=== PATIENT | male | born 1960 | race Caucasian/White ===

== ENCOUNTER → 2022-05-28 | Outpatient (CLI) | payer OTHER, SELFPAY ==
[2022-05-28 09:17] LABS: Absolute Lymphocyte Count 0.88 X10^3/uL (0.83-4.51); Absolute Neutrophil Count 4.1 X10^3/uL (2.0-7.7); Basophil# 0.05 X10^3/uL; Basophil% 0.9 % (0-1); Eosinophil# 0.24 X10^3/uL; Eosinophils% 4.2 % (0-5); Hematocrit 43.4 % (40-54); Hemoglobin 15.8 g/dL (13.0-16.5); Lymphocyte # 0.88 X10^3/ul (0.83-4.51); Lymphocyte % 15.4 % (19-41); Mean Corp Hgb Conc 36.4 g/dL (32-36); Mean Corpuscular Hgb 30.9 pg (27.0-32.0); Mean Corpuscular Volume 84.8 fL (80-94); Mean Platelet Vol. 11.2 fl (6.2-12.0); Monocyte# 0.45 X10^3/uL; Monocyte% 7.9 % (0-10); NRBC Flagged by Analyzer 0 % (0-5); Neutrophil # 4.07 X10^3/uL (2.7-7.7); Neutrophil % 71.1 % (47-70); Platelet Count 151 K/mm3 (150-450); RBC Distribution Width CV 13.1 % (11.6-14.6); RBC Distribution Width SD 40.7 fl (35.1-43.9); Red Blood Count 5.12 M/mm3 (4.6-6.2); White Blood Count 5.7 K/mm3 (4.4-11.0)
[2022-05-30 17:07] LABS: Alternaria tenuis <0.10 kU/L (Class 0); Ash, White <0.10 kU/L (Class 0); Aspergillus fumigatus <0.10 kU/L (Class 0); Bermuda Grass <0.10 kU/L (Class 0); Birch <0.10 kU/L (Class 0); Black Walnut <0.10 kU/L (Class 0); Cat Hair / Dander,Stand <0.10 kU/L (Class 0); Cedar, Mountain <0.10 kU/L (Class 0); Cladosporium herbarum <0.10 kU/L (Class 0); Cockroach, American <0.10 kU/L (Class 0); Cottonwood <0.10 kU/L (Class 0); D farinae Mite <0.10 kU/L (Class 0); D pteronyssinus <0.10 kU/L (Class 0); Dog Epithelia <0.10 kU/L (Class 0); Elm, American White <0.10 kU/L (Class 0); Immunoglobulin E 6 IU/mL (6-495); Maple/Box Elder <0.10 kU/L (Class 0); Mulberry, White <0.10 kU/L (Class 0); Oak, White <0.10 kU/L (Class 0); Pecan <0.10 kU/L (Class 0); Penicillium Notatum <0.10 kU/L (Class 0); Pigweed, Rough <0.10 kU/L (Class 0); Ragweed, Short/Common <0.10 kU/L (Class 0); Russian Thistle <0.10 kU/L (Class 0); Sheep Sorrel <0.10 kU/L (Class 0); Sycamore, American <0.10 kU/L (Class 0); Timothy Grass <0.10 kU/L (Class 0)
[2022-05-31 09:27] LABS: Mouse Urine <0.10 kU/L (Class 0)
[2022-06-01 18:08] LABS: Aspirgillus flavus Negative (Neg:<1:1); Aspirgillus fumigatus Negative (Neg:<1:1); Aspirgillus niger Negative (Neg:<1:1)
[2022-06-02 11:24] LABS: Immunoglobulin E 7 IU/mL (6-495)
== END | disposition home or self-care (01) ==
LOC: PAVLAB 09:00
PROVIDERS: Referring Provider Internal Medicine Critical Care Medicine; Visit Provider Internal Medicine Critical Care Medicine
DX: J45.909 Unspecified asthma, uncomplicated (principal)
CPT/HCPCS: 36415; 82785; 85025; 86003; 86606

== ENCOUNTER → 2022-09-24 | Outpatient (CLI) | payer OTHER, SELFPAY ==
--- NOTE | 2022-09-24 13:13 | ECHOD_ITS ---
Reason For Study: Dyspnea/SOB Procedure This was a 2D Doppler, Color Flow transthoracic echocardiogram. Exam performed in department. Left Ventricle Normal LV size. Mild concentric left ventricular hypertrophy. Left ventricular systolic function is normal. Stage 1 diastolic dysfunction. No regional wall motion abnormalities noted. Right Ventricle Normal RV size. Normal systolic function. Atria Normal left atrium. Normal right atrium. Mitral Valve Normal mitral valve. Tricuspid Valve Normal tricuspid valve. Aortic Valve Trisinus/trileaflet aortic valve. Mild focal aortic valve calcification. Pulmonic Valve Normal pulmonic valve. Great Vessels Normal aortic root. The pulmonary artery is normal size. Normal inferior vena cava. Pericardium/Pleural No pericardial effusion. MMode/2D Measurements & Calculations LVIDd: 5.1 cm IVSd: 1.2 cm Ao root diam: 3.4 cm LVIDs: 3.1 cm LVPWd: 1.2 cm RVDd: 4.5 cm FS: 40.4 % LAV(MOD-bp): 42.8 ml LVAd ap4: 26.0 cm2 SV(MOD-sp4): 46.2 ml LAV(MOD-bp) Indexed: 19.3 ml/m2 LVLd ap4: 7.8 cm LAV(MOD-sp2): 42.8 ml EDV(MOD-sp4): 70.2 ml LAV(MOD-sp4): 38.2 ml EDV(sp4-el): 73.4 ml LVAs ap4: 13.6 cm2 LVLs ap4: 6.5 cm ESV(MOD-sp4): 24.0 ml ESV(sp4-el): 24.1 ml EF(MOD-sp4): 65.8 % EF(sp4-el): 67.1 % SV(sp4-el): 49.3 ml LA A4 area: 14.8 cm2 LA dimension(2D): 3.6 cm RA A4 area: 12.6 cm2 TAPSE: 1.9 cm Time Measurements MV dec time: 0.31 sec Doppler Measurements & Calculations MV E max parish: 64.4 cm/sec Lat Peak E' Parish: 13.6 cm/sec Med Peak E' Parish: 6.5 cm/sec MV A max parish: 87.0 cm/sec E/E' lat: 4.8 E/E' med: 10.0 MV E/A: 0.74 Ao V2 max: 169.5 cm/sec LV V1 max: 122.6 cm/sec MV dec slope: 205.7 cm/sec2 Ao max P.5 mmHg LV V1 max P.0 mmHg Ao V2 mean: 123.3 cm/sec LV V1 mean P.9 mmHg Ao mean P.6 mmHg LV V1 mean: 78.6 cm/sec Ao V2 VTI: 30.5 cm LV V1 VTI: 23.3 cm AV (velocity ratio): 0.76 PA V2 max: 80.4 cm/sec ECHO/Echo Complete Interpretation Summary Normal LV size. Left ventricular systolic function is normal. Stage 1 diastolic dysfunction. Structurally normal valves. Ordering Physician: Janay Chaidez Referring Physician: Janay Chaidez Performed By: Payal Jesus, PIETER, RVT
== END | disposition home or self-care (01) ==
LOC: PSN 13:14 → CVS 13:14
PROVIDERS: Referring Provider Nurse Practitioner Acute Care; Visit Provider Nurse Practitioner Acute Care
DX: R06.02 Shortness of breath (principal)
CPT/HCPCS: 93306

== ENCOUNTER → 2022-10-18 | Outpatient (CLI) | payer OTHER, SELFPAY ==
[2022-10-18 13:46] VITALS: PULSE 100; PULSE 101; PULSE 77; PULSE 78; PULSE 95; PULSE 96; PULSE 98; O2SAT 90; O2SAT 91; O2SAT 92; O2SAT 94; O2SAT 95; O2SAT 97
--- NOTE | 2022-10-18 13:50 | CPS ---
ENTIRE WALK TEST DONE ON RA. AUDIBLE EXP WHEEZING NOTED AROUND 2ND MINUTE OF EXERCISE AND CONTINUED UNTIL PATIENT WAS AT REST FOR SEVERAL MINUTES AFTER TEST ENDED. PATIENT STATES PREVIOUSLY HAD AN INHALER BUT HAS NOT HAD OR USED ONE RECENTLY. HE DID NOT REQUIRE ANY REST BREAKS AND WALKED 1433FT.
--- NOTE | 2022-10-19 05:56 | WT_ITS ---
PSN 6 Minute Walk Test 6 Minute Walk Test 6 Minute Walk Test: 6 Minute Walk Test PSN:6-Minute Walk Test Start: 10/18/22 13:46 Freq: Status: Active Protocol: RESP.[id number] Document 10/18/22 13:46 [facility] (Rec: 10/18/22 13:52 [facility] [id number]) 6 Minute Walk Test Date Performed 10/18/22 Time Performed 12:30 Height 6 ft 1 in Weight: 96.162 kg Weight in Pounds 212.[address]: Janay Chaidez [employer] Assistive device used: None Pre-test Oxygen Delivery Method Room Air Pulse Ox 97 Pulse Rate (60-100) 78 Dyspnea Poornima Scale (0-10) 0 1st minute Oxygen Delivery Method Room Air Pulse Ox 95 Pulse Rate (60-100) 95 Dyspnea Poornima Scale (0-10) 0 Number of Rests Taken 0 2nd minute Oxygen Delivery Method Room Air Pulse Ox 91 Pulse Rate (60-100) 96 Dyspnea Poornima Scale (0-10) 0 Number of Rests Taken 0 3rd minute Oxygen Delivery Method Room Air Pulse Ox 91 Pulse Rate (60-100) 100 Dyspnea Poornima Scale (0-10) 1 Number of Rests Taken 0 4th minute Oxygen Delivery Method Room Air Pulse Ox 90 Pulse Rate (60-100) 101 H Dyspnea Poornima Scale (0-10) 1 Number of Rests Taken 0 5th minute Oxygen Delivery Method Room Air Pulse Ox 92 Pulse Rate (60-100) 100 Dyspnea Poornima Scale (0-10) 1 Number of Rests Taken 0 Reported Symptoms Increased Work of Breathing 6th minute Oxygen Delivery Method Room Air Pulse Ox 94 Pulse Rate (60-100) 98 Dyspnea Poornima Scale (0-10) 1 Number of Rests Taken 0 Post-test Oxygen Delivery Method Room Air Pulse Ox 97 Pulse Rate (60-100) 77 Dyspnea Poornima Scale (0-10) 0 Full Laps Walked 24 Partial Lap, Number of Tiles Walked 17 Total Distance Walked (ft) 1433 10/18/22 13:50 [facility] Services by Corry Ye ENTIRE WALK TEST DONE ON RA. AUDIBLE EXP WHEEZING NOTED AROUND 2ND MINUTE OF EXERCISE AND CONTINUED UNTIL PATIENT WAS AT REST FOR SEVERAL MINUTES AFTER TEST ENDED. PATIENT STATES PREVIOUSLY HAD AN INHALER BUT HAS NOT HAD OR USED ONE RECENTLY. HE DID NOT REQUIRE ANY REST BREAKS AND WALKED 1433FT. Initialized on 10/18/22 13:50 - END OF NOTE Interpretation Interpretation: The patient was able to ambulate 1433 feet over the course of 6 minutes on room air with no assistive devices or breaks. The patient did experience significant desaturation from a baseline of 97% to as low as 90% with ambulation. Patient did have an element of reflexive tachycardia as high as 101 bpm. These findings are consistent with a respiratory limitation exercise tolerance. Recommendations Recommendations: No supplemental oxygen is indicated at this time. However, patient will need to be followed closely given level of desaturation.
== END | disposition home or self-care (01) ==
LOC: PSN 12:23
PROVIDERS: Referring Provider Nurse Practitioner Acute Care; Visit Provider Nurse Practitioner Acute Care
DX: R06.02 Shortness of breath (principal)
CPT/HCPCS: 94618

== ENCOUNTER → 2022-12-20 | Outpatient (CLI) | payer OTHER, SELFPAY | END | disposition home or self-care (01) | LOC: SL 11:57 | PROVIDERS: Visit Provider Nurse Practitioner Acute Care | DX: G47.10 Hypersomnia, unspecified (principal) | CPT/HCPCS: 95806 ==

== ENCOUNTER → 2023-11-05 | Outpatient (CLI) | payer OTHER, SELFPAY ==
--- NOTE | 2023-11-05 19:09 | CT_ITS ---
STUDY: CT CHEST WITH CONTRAST REASON FOR EXAM: Male, 63 years old. Abnormal Chest CT with lymphadenopathy RADIATION DOSAGE (If Supplied By Facility): CTDIvol = ( 13.61 ) mGy, DLP = ( 545.60 ) mGycm TECHNIQUE: Transaxial imaging was performed following intravenous administration of IV 100mL Isovue-370. Multiplanar coronal and sagittal images were reformatted. Individualized dose optimization techniques were used for this CT. COMPARISON: Comparison is made with prior outside examination dated September 26, 2023. FINDINGS: CHEST The lungs are normal. There is no demonstrated pleural abnormality. No significant coronary artery calcification is seen. There is evidence of a enlarged mediastinal as well as bilateral hilar lymphadenopathy more prominent on the right side. There is narrowing of the right upper lobe bronchus as well as the intermediate stem bronchus with the evidence of the postobstructive pneumonitis and volume loss in the right upper lobe. This also evidence of a multiple bilateral pulmonary nodules with the infiltrate seen in the superior segment of the right lower lobe. . Normal unenhanced pulmonary arteries. Normal aorta arch and descending thoracic aorta. There are multi-level degenerative changes of the thoracic spine. Findings suggestive of a 3.5 cm cyst in the mid anterior portion of the right kidney. CT/Chest WITH Contrast IMPRESSION: Mediastinal and bilateral hilar lymphadenopathy more prominent on the right side with possible mass in the right hilum with the postobstructive pneumonitis and volume loss in the right upper lobe. A neoplastic process should be ruled out. Multiple bilateral noncalcified pulmonary nodules. Electronically Signed: David Moctezuma MD at 9:19 EDT ,
[2023-11-05 19:35] LABS: CREATININE FINGERSTICK < 1.0 mg/dL (0.70-1.30); EGFR FINGERSTICK > 60.0000 mL/min (>60)
== END | disposition home or self-care (01) ==
LOC: CT 19:09
PROVIDERS: Referring Provider Internal Medicine Critical Care Medicine; Visit Provider Internal Medicine Critical Care Medicine
DX: R93.89 Abnormal findings on diagnostic imaging of other specified body structures (principal); J45.40 Moderate persistent asthma, uncomplicated
CPT/HCPCS: 71260; Q9967

== ENCOUNTER → 2023-11-06 | Outpatient (CLI) | payer OTHER, SELFPAY ==
[2023-11-06 11:57] LABS: Platelet Count 124 K/mm3 (150-450)
[2023-11-06 12:19] LABS: Partial Thromboplast Time 30.1 Seconds (24.1-36.2)
== END | disposition home or self-care (01) ==
LOC: PAVLAB 11:39
PROVIDERS: Referring Provider Internal Medicine Critical Care Medicine; Visit Provider Internal Medicine Critical Care Medicine
DX: R93.89 Abnormal findings on diagnostic imaging of other specified body structures (principal)
CPT/HCPCS: 36415; 85049; 85610; 85730

== ENCOUNTER 2023-11-15 10:38 | Day surgery (SDC) | payer OTHER, SELFPAY ==
--- NOTE | 2023-11-12 12:10 | HP.PCM_ITS ---
[facility] - General General Date of Service: 11/15/23 HPI Narrative The patient is a 63-year-old male who was last seen in the pulmonary medicine clinic on November 06, 2023. If you recall, the patient initially presented to our office in May 2022 for the evaluation of asthma. The patient had pulmonary function studies completed through [facility] in [place], dated March 2022, which revealed a severe obstructive ventilatory impairment with significant bronchodilator response and concurrent mild restrictive impairment with mild reduction in diffusion capacity. He is a lifelong non-smoker, without any significant secondhand smoke exposure. He is currently employed working as a crop marin. He does not currently keep any animals as pets in his home environment. He denied any overt GERD or heartburn. The patient reported that in September 2023 he developed a significant cough with blood-streaked sputum. This prompted his PCP to obtain chest imaging. A contrasted chest CT was ultimately performed on September 25, which demonstrated consolidation and atelectasis in the right middle lobe along with a right hilar masslike consolidation which ultimately resulted in partial obstruction of the right middle and lower lobe bronchus. The patient reported that he was subsequently treated with 2 different antimicrobials and corticosteroids. He reported resolution of his blood-streaked sputum. Repeat CT imaging of the chest completed in early November continues to demonst rate enlarged mediastinal and hilar adenopathy, right greater than left with narrowing of the right upper lobe bronchus and postobstructive pneumonitis. Several bilateral pulmonary nodules were noted. Given these findings, I had a detailed discussion with the patient today regarding workup, including proceeding with bronchoscopy/EBUS to facilitate mediastinal sampling. The patient reported an interest in proceeding with workup. 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 Lower leg injury Diabetes mellitus Asthma Depressive disorder Medial meniscus tear Albuminuria Anxiety disorder SOB (shortness of breath) Home Medications ?Medication ?Instructions ?Recorded ?Last Taken ?Type glipizide 10 mg tablet, extended 10 mg PO DAILY 05/25/22 Unknown History release 24 hr metformin 500 mg tablet,extended 1,000 mg PO BID 05/25/22 Unknown History release 24 hr spacer #1 ea 11/01/22 Unknown Rx irbesartan 150 mg tablet 150 mg PO DAILY 02/07/23 Unknown History montelukast 10 mg tablet 10 mg PO QPM #90 tabs 07/03/23 Unknown Rx (Singulair) clonazepam 0.5 mg tablet 0.5 mg PO BID PRN anxiety 30 days 08/21/23 Unknown Rx #60 tabs sertraline 100 mg tablet 200 mg (2 x 100 mg) PO DAILY 90 08/21/23 Unknown Rx days #180 tabs budesonide 160 mcg-glycopyr 9 2 inh inhalation BID #3 ea 09/13/23 Unknown Rx mcg-formot 4.8 mcg/actuation HFA inhaler (Breztri Aerosphere) albuterol sulfate 90 mcg/actuation 2 puff inhalation Q4H PRN 10/17/23 Unknown Rx aerosol inhaler shortness of breath or wheezing #8.5 grams Allergy/AdvReac Type Severity Reaction Status Date / Time No Known Allergies Allergy Verified 11/06/23 11:10 Family History Mother Heart disease Brother Hypertension Surgical History H/O surgical amputation of finger Social History Smoking Status: Never smoker alcohol intake: never substance use type: does not use Physical Exam Const alert and no apparent distress General Appearance: cooperative HEENT normocephalic and head/scalp atraumatic Eyes PERRL and EOMs intact bilaterally Neck supple General: trachea midline Resp normal respiratory effort and normal air movement Cardio regular rate and regular rhythm GI normal to inspection, nondistended, normoactive bowel sounds Extremity General Extremity: Negative for clubbing, cyanosis or edema Skin General Skin Exam: no breakdown Neuro CN's II-XII intact bilaterally and no focal motor deficits Psych cooperative and affect normal Assessment & Plan Assessment/Plan (1) Abnormal chest CT: PLAN: Given that the patient continues to demonstrate significant mediastinal and hilar adenopathy with extrinsic compression of the airway, we will plan to proceed with bronchoscopy/EBUS on November 14. The risks and benefits of the proposed procedure were discussed with the patient at length. He is in agreement to proceed.
[2023-11-15] VITALS (8 sets, daily range): BP systolic 135–162; BP diastolic 71–90; PULSE 69–83; RESP 16–20; TEMP 36.1–36.7; O2SAT 93–100; BMI 26.8
--- NOTE | 2023-11-15 | ASPIG_PTH ---
PATIENT: EUGENIO WILLIAM LOC: EN U#:[id number] AGE/SX: 63/M ROOM: RE11/15/[address]: Dr. Ishaan Hurst DO : 1960 BED: DIS: 11/15/2023 SPEC #: [id number] RECD: 11/15/23 13:01 STATUS: KAY LOPEZ #: [id number] JOHN: 11/15/23 00:[address]: Ishaan Hurst DEPT: CYTOLOGY RECD BY: Arnold Nuñze ENTERED: 11/15/23 13:05 SP TYPE: ASP OUT OTHR DR: Dr. Eugenio Ac DO Tissues: A - Lung, NOS B - Lung, NOS C - Lung, NOS D - Lung, NOS E - Lung, NOS F - Lung, NOS Procedures: FNA Specimen Adequacy Special Stain Group II Surgery Specimen Level IV Cytology Other HEADER OPERATION: Endobronchial ultrasound and bronchoscopy with brushings PRE-OP DIAGNOSIS: Abnormal chest CT TISSUE SUBMITTED: Right upper lobe brushings, Right upper lobe brush tip DIAGNOSIS CYTOLOGY A. EBUS, TBNA, site 10R #1 (smears): Respiratory epithelial cells noted. Negative for malignant cells. See comment. B. EBUS, TBNA site 10R #2 (smears): Respiratory epithelial cells noted. Negative for malignant cells. See comment. C. EBUS, TBNA site 10 R #3 (smears): Predominant mucoid material. Negative for malignant cells. See comment. D. EBUS, TBNA, site 10 R fluid (cellblock): Negative for malignant cells. See cytology study. E. Right upper lobe brush tip fluid (cytospin and cellblock): Negative for malignant cells. See cytology study. F. Right upper lobe brushings (smears): Negative for malignant cells. ARMANI/ 11/18/2023 COMMENT The specimen is evaluated at the time of procedure by Dr. Brizuela. Immediate Evaluation = Rapid on site evaluation A. EBUS TBNA #1, site 10R: Respiratory epithelial cells noted. Negative for malignant cells. B. EBUS TBNA #2, site 10R: Respiratory epithelial cells noted. Negative for malignant cells. C. EBUS TBNA #3, site 10R: Predominant mucoid material. Negative for malignant cells. Please make reference to previous specimen [id number], right upper lobe, endobronchial biopsy with diagnosis of fragments of benign bronchial mucosa, negative for malignancy. CYTOLOGY STUDY Slides are reviewed. D. The specimen consists of fragments of respiratory epithelium and cartilage. E. The specimen consists of fragments of respiratory epithelium and rare fragment of squamous epithelium. CYTOLOGY GROSS A. Received labeled with the patient's name and and designated EBUS, TBNA, site 10R #1. The specimen consists of two stained smears for ESTRELLA. B. Received labeled with the patient's name and and designated EBUS, TBNA, site 10R #2. The specimen consists of two stained smears for ESTRELLA. C. Received labeled with the patient's name and and designated EBUS, TBNA, site 10R #3. The specimen consists of two stained smears for ESTRELLA. D. Received is 35 ml of pink fluid labeled with the patient's name and and designated per the requisition as 10R. Submitted for cytology preparation including cell block. E. Received is 1 brush with 1.5 ml of pink-cloudy fluid labeled with the patient's name and and designated per the requisition as Right upper lobe brush tip. Submitted for cytology preparation including cell block. F. Received are 4 smears labeled with the patient's name and designated per the requisition as Right upper lobe brushings. Submitted for staining. 11/15/2023 TC:5 CPT: 62761o0, 37607, 23300, 66737, 83403, 03005 x2
--- NOTE | 2023-11-15 10:59 | PRE.ANES_ITS ---
ASA Classification* ASA Classification ASA Classification: 3 Assessment & Plan Anesthesia* Anesthesia Assessment Anesthesia Assessment: Discussed sedation and/or anesthesia options, risks, benefits, and alternatives with patient/parents/legal guardian/POA. Questions invited. The patient/parents/legal guardian/POA seems to understand and agrees to proceed with anesthesia plan. Reviewed the physical assessment, medical history, allergy history and patient home medications list prior to surgery/procedure/anesthetic and documented any changes. Performed airway and anesthesia risk assessments. Anesthesia Type Anesthesia Type: General Anesthesia Focused Assessment* Airway Assessment Mouth opens: >3 cm Mallampati Score: II Focused Labs Anesthesia Preop lab: CBC WBC 5.7 K/mm3 (4.4-11.0) 05/28/22 09:05 RBC 5.12 M/mm3 (4.6-6.2) 05/28/22 09:05 Hgb 15.8 g/dL (13.0-16.5) 05/28/22 09:05 Hct 43.4 % (40-54) 05/28/22 09:05 Plt Count 124 K/mm3 (150-450) L 11/06/23 11:41 CHEMISTRY COAG PT 13.0 SECONDS (11.7-14.9) 11/06/23 11:41 Pre-Assessment Diagnosis/Proposed Procedure Planned Operative Procedure(s): EBUS Anesthesia History Anesthesia History - operations officer trust department: Anesthesia History - operations officer trust department Hx Hospitalization No 11/13/23 14:24 Any Problems With Anesthesia No 11/13/23 14:24 Cholinesterase deficiency No 11/13/23 14:24 You/Your Family Experience No 11/13/23 14:24 fever (hyperthermia) with Relationship Recent Exposure to Contagious Disease Does patient have nerve No 11/13/23 14:24 stimulator Patient instructed to have device shut off --Does patient have Pacemaker or ICD? When Was Last Pacemaker Check QUESTION #4 FULL TEXT: You/Your Family Experience fever (hyperthermia) with Anesthesia Last Oral Intake Last Oral intake: Last Oral Intake NPO since Meds taken in AM with sips of water? Meds patient instructed to take am of surgery PONV PONV - operations officer trust department: PONV - operations officer trust department Female No 11/13/23 14:24 HX of Motion Sickness No 11/13/23 14:24 HX of N/V After Surgery No 11/13/23 14:24 Non-Smoker Yes 11/13/23 14:24 Duration of Surgery greater No 11/13/23 14:24 than 60 minutes Number of Risk Factors 1 11/13/23 14:24 PONV Score Low Risk 11/13/23 14:24 Height & Weight Height & Weight: Anesthesia: Height & Weight Height 6 ft 1 in 11/06/23 08:17 Respiratory Assessment Respiratory Assessment - operations officer trust department: Respiratory Tract Infection Hx - operations officer trust department Hx Respiratory Tract Infection No 11/13/23 14:24 STOP Sleep Apnea STOP Sleep Apnea - operations officer trust department: STOP Sleep Apnea - operations officer trust department Hx Hypertension Yes: CONTROLLED WITH MED 11/13/23 14:24 Hx Sleep Apnea No 11/13/23 14:24 CPAP BIPAP Do you snore loudly (louder No 11/13/23 14:24 than talking or can be heard Do you often feel tired/ No 11/13/23 14:24 fatigued/ sleepy during daytime? Has anyone observed you stop Yes 11/13/23 14:24 breathing during sleep? STOP Results Positive 11/13/23 14:24 QUESTION #5 FULL TEXT : Do you snore loudly (louder than talking or can be heard through closed doors)? Tobacco Use History Tobacco Use History - operations officer trust department: Tobacco Use History - operations officer trust department Tobacco Use Smoking Status Never smoker 11/13/23 14:24 Hx Tobacco Use No 11/13/23 14:24 Years Smoking Packs Smoked per Day Smoking Cessation Date was within the last 15 years Hx Smoking Cessation Date Hx Smoking Cessation Counseling Hematologic Medial History Hematologic Hx - operations officer trust department: Hematologic Medical Hx - documentation specialist Hx of Blood Transfusion No 11/13/23 14:24 Hx of Transfusion in last 3 No 11/13/23 14:24 Months Date of Last Transfusion (if within last 3 months) Ever experience any problems No 11/13/23 14:24 with transfusion(s)? Specify any problems Hx of Preganancy in last 3 N/A 11/13/23 14:24 Months Nurse Filling Out Transfusion NBUCHER 11/13/23 14:24 & Questions: Date: 11/13/23 11/13/23 14:24 Time: 14:25 11/13/23 14:24 Patient unable to answer at this time (ie. 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 Lower leg injury Diabetes mellitus Asthma Depressive disorder Medial meniscus tear Albuminuria Anxiety disorder SOB (shortness of breath) Home Medications ?Medication ?Instructions ?Recorded ?Last Taken ?Type glipizide 10 mg tablet, extended 10 mg PO DAILY 05/25/22 Unknown History release 24 hr metformin 500 mg tablet,extended 1,000 mg PO BID 05/25/22 Unknown History release 24 hr spacer #1 ea 11/01/22 Unknown Rx irbesartan 150 mg tablet 150 mg PO DAILY 02/07/23 Unknown History montelukast 10 mg tablet 10 mg PO QPM #90 tabs 07/03/23 Unknown Rx (Singulair) clonazepam 0.5 mg tablet 0.5 mg PO BID PRN anxiety 30 days 08/21/23 Unknown Rx #60 tabs sertraline 100 mg tablet 200 mg (2 x 100 mg) PO DAILY 90 08/21/23 Unknown Rx days #180 tabs budesonide 160 mcg-glycopyr 9 2 inh inhalation BID #3 ea 09/13/23 Unknown Rx mcg-formot 4.8 mcg/actuation HFA inhaler (Breztri Aerosphere) albuterol sulfate 90 mcg/actuation 2 puff inhalation Q4H PRN 10/17/23 Unknown Rx aerosol inhaler shortness of breath or wheezing #8.5 grams Allergy/AdvReac Type Severity Reaction Status Date / Time No Known Allergies Allergy Verified 11/13/23 14:21 Family History Mother Heart disease Brother Hypertension Surgical History History of colonoscopy History of skin graft History of arthroscopic knee surgery H/O surgical amputation of finger Social History Smoking Status: Never smoker alcohol intake: never substance use type: does not use Review of Systems (Anesthesia) ROS Narrative System reviewed and no additional complaints, except as documented.
[2023-11-15] MEDS: Lactated Ringers 1,000 ML 15 ML IV (11:13)
--- NOTE | 2023-11-15 12:00 | LUNG_PTH ---
PATIENT: EUGENIO WILLIAM LOC: EN U#:[id number] AGE/SX: 63/M ROOM: RE11/15/[address]: Dr. Ishaan Hurst DO : 1960 BED: DIS: 11/15/2023 SPEC #: [id number] RECD: 11/15/23 13:16 STATUS: KAY LOPEZ #: [id number] JOHN: 11/15/23 12:[address]: Ishaan Hurst DEPT: SURGICAL PATHOLOGY RECD BY: Arnold Nuñez ENTERED: 11/15/23 13:38 SP TYPE: LUNG BX OTHR DR: Dr. Eugenio Ac DO Tissues: Right upper lobe of lung, NOS Procedures: Surgery Specimen Level IV HEADER OPERATION: Endobronchial ultrasound and bronchoscopy with brushings PRE-OP DIAGNOSIS: Abnormal chest CT TISSUE SUBMITTED: Right upper lobe endobronchial biopsy MICROSCOPIC DIAGNOSIS Right upper lobe lung, endobronchial biopsy: Fragments of bronchial mucosal tissue, negative for malignancy. Mild chronic inflammation. See comment. ARMANI/ 11/18/2023 COMMENT Please also make reference to additional specimen [id number]. MICROSCOPIC DESCRIPTION Slides are reviewed. GROSS DESCRIPTION Received in fixative is one container labeled with the patient's name and designated Right upper lobe endobronchial biopsy. The specimen consists of multiple irregular fragments of light page soft tissue that in aggregate measure 0.6 x 0.1 x 0.1 cm. The specimen is totally submitted in one cassette. 11/15/2023 TC:3 CPT:08742
[2023-11-15 12:59] LABS: Bedside Glucose 70 mg/dL (74-106)
--- NOTE | 2023-11-15 13:01 | OP.BRONCH_ITS ---
Patient Name: Eugenio Marion Procedure Date: 11/15/2023 11:31 AM Date of : 1960 Age: 63 Procedure: Bronchoscopy Indications: Mediastinal adenopathy, Abnormal CT scan of chest Providers: Ishaan Hurst MD Medicines: General Anesthesia Complications: No immediate complications Procedure: Pre-Anesthesia Assessment: - A History and Physical has been performed. Patient meds and allergies have been reviewed. The risks and benefits of the procedure and the sedation options and risks were discussed with the patient. All questions were answered and informed consent was obtained. Patient identification and proposed procedure were verified prior to the procedure by the physician and the nurse in the procedure room. Mental Status Examination: alert and oriented. Airway Examination: normal oropharyngeal airway. Respiratory Examination: clear to auscultation. CV Examination: normal. ASA Grade Assessment: II - A patient with mild systemic disease. After reviewing the risks and benefits, the patient was deemed in satisfactory condition to undergo the procedure. The anesthesia plan was to use general anesthesia. Immediately prior to administration of medications, the patient was re-assessed for adequacy to receive sedatives. The heart rate, respiratory rate, oxygen saturations, blood pressure, adequacy of pulmonary ventilation, and response to care were monitored throughout the procedure. The physical status of the patient was re-assessed after the procedure. After I obtained informed consent, the scope was passed under direct vision. Throughout the procedure, the patient's blood pressure, pulse, and oxygen saturations were monitored continuously. The ultrasound bronchoscope was introduced through the mouth, via laryngeal mask airway and advanced to the tracheobronchial tree. The bronchoscope was introduced through the mouth, via laryngeal mask airway and advanced to the tracheobronchial tree. The procedure was accomplished without difficulty. The patient tolerated the procedure well. Findings: Bilateral Lung Abnormalities: Notable secretions were found throughout the tracheobronchial tree. They were not obstructing the airway. Circumferential narrowing was found in the right upper lobe orifice. The airway is moderately narrowed. Extrinsic compression was found in the posterior bronchus intermedius. The lesion was successfully traversed. Endobronchial biopsies were performed in the right upper lobe using forceps and sent for routine cytology. Three samples were obtained. Guided brushings were obtained in the right upper lobe with a cytology brush and sent for routine cytology. One sample was obtained. The scope was withdrawn and replaced with the EBUS bronchoscope to accomplish the ultrasound examination. Lymph Nodes: An endobronchial ultrasound endoscope was utilized to systematically examine the right hilar region (level 10R) in order to assist with guiding the biopsy needle. Lymph node sizing was performed via endobronchial ultrasound. Sampling by transbronchial needle aspiration was also performed using an Olympus ViziShot 2 FLEX 19 gauge needle in the right hilar region (level 10R) and sent for routine cytology. - The 10R (hilar) node was evaluated. Three samples with the needle were obtained. Bilateral Lung Abnormalities: Notable secretions were found throughout the tracheobronchial tree. They were not obstructing the airway. Circumferential narrowing was found in the right upper lobe orifice. The airway is moderately narrowed. Extrinsic compression was found in the posterior bronchus intermedius. The lesion was successfully traversed. Endobronchial biopsies were performed in the right upper lobe using forceps and sent for routine cytology. Three samples were obtained. Guided brushings were obtained in the right upper lobe with a cytology brush and sent for routine cytology. One sample was obtained. Impression: - Abnormal CT scan of chest - No specimens collected. Recommendation: - Await biopsy results. Procedure Code(s): --- Professional --- 44839, Bronchoscopy, rigid or flexible, including fluoroscopic guidance, when performed; with endobronchial ultrasound (EBUS) guided transtracheal and/or transbronchial sampling (eg, aspiration[s]/biopsy[ies]), one or two mediastinal and/or hilar lymph node stations or structures 10084, Bronchoscopy, rigid or flexible, including fluoroscopic guidance, when performed; with bronchial or endobronchial biopsy(s), single or multiple sites 07864, Bronchoscopy, rigid or flexible, including fluoroscopic guidance, when performed; with brushing or protected brushings Diagnosis Code(s): --- Professional --- R93.89, Abnormal findings on diagnostic imaging of other specified body structures R59.0, Localized enlarged lymph nodes CPT copyright 2021 [employer]. All rights reserved. The codes documented in this report are preliminary and upon nurse companion review may be revised to meet current compliance requirements. DO Ishaan Montano MD 11/15/2023 1:00:52 PM This report has been signed electronically. Number of Addenda: 0 Note Initiated On: 11/15/2023 11:31 AM
--- NOTE | 2023-11-15 13:02 | PCM.POST.ANE ---
Anesthesia: Postop Eval I Current Vital Signs Temperature: 98.1 F Pulse Rate: 81 Blood Pressure: 135/77 Respiratory Rate: 20 Pulse Ox: 93 Assessment Airway patent: Yes Spontaneous unlabored respirations: Yes nausea: No Vomiting: No Anesthesia Complication: No Fluid Hydration Crystalloid volume administer (ml): 1,000 Total IV fluid infused: 1,000 Progress Note Anesthesia document: Postop Eval 1 completed: Yes
--- NOTE | 2023-11-15 13:04 | PCM.POSTANE2 ---
Anesthesia Postop Eval I Sum Postop Eval Completion status Anesthesia document: Postop Eval 1 completed: Yes Anesthesia Postop Eval I Summary Anesthesia Postop Eval I Summary: Anesthesia Postop Eval I: Assessment Summary Airway patent Yes 11/15/23 13:03 Spontaneous unlabored Yes 11/15/23 13:03 respirations Mental status nausea No 11/15/23 13:03 Vomiting No 11/15/23 13:03 Anesthesia Postop Eval I: Fluid Summary Crystalloid volume administer 1,000 11/15/23 13:03 (ml) Colloids volume administered ( ml) Blood Product volume administered (ml) Total IV fluid infused 1,000 11/15/23 13:03 Anesthesia Postop Eval I: Summary Notes Anesthesia Complication No 11/15/23 13:03 Anesthesia Complication Comment: Post-operative progress note Anesthesia: Postop Eval II Evaluation Mental status: Awake Pain Level: 0 nausea: No Vomiting: No
--- NOTE | 2023-11-15 13:47 | SUR.PHASEII ---
patient coughing post EBUS, not productive
== END 2023-11-15 14:24 | disposition home or self-care (01) ==
LOC: EN 10:38 → AC 10:42
PROVIDERS: Visit Provider Internal Medicine Critical Care Medicine
PROC: BB4BZZZ Ultrasonography of Pleura (ICD-10-PCS; CPT 31625; principal; 2023-11-15 11:30)
DX: R91.8 Other nonspecific abnormal finding of lung field (principal); E11.9 Type 2 diabetes mellitus without complications; Z79.84 Long term (current) use of oral hypoglycemic drugs; F41.9 Anxiety disorder, unspecified; Z79.899 Other long term (current) drug therapy; J45.909 Unspecified asthma, uncomplicated; Z79.51 Long term (current) use of inhaled steroids; R93.89 Abnormal findings on diagnostic imaging of other specified body structures; R59.0 Localized enlarged lymph nodes
CPT/HCPCS: 31625; 31654; 31652; 82962; 88161; 88172; 88305; 88313; J7120

== ENCOUNTER → 2023-12-03 | Outpatient (CLI) | payer OTHER, SELFPAY ==
--- NOTE | 2023-12-03 10:00 | PET_ITS ---
?EXAMINATION: FDG-PET/CT ? INDICATIONS: 63 year-old male with a history of abnormal finding on lung field-pulmonary nodularity. ? COMPARISON EXAMINATION: CT of the chest dated 11/05/2023. ? INDEX LESION SIZE SUV INTERPRETATION Right lower lung field,? n=2 25.3 mm, largest 3.3 max Fulfills quantitative criteria for viable neoplasm ? Bilateral thoracic perihilum 7.9 cm 6.3 Fulfills quantitative criteria for viable neoplasm ? Anterior mediastinum 15.6 mm 4.1 Fulfills quantitative criteria for viable neoplasm ? Abdominal retroperitoneum 15.7 mm 3.9 Fulfills quantitative criteria for viable neoplasm ? Left and right lobe hepatic parenchyma 50.8 mm, largest 4.03, ratio >2.0 Fulfills quantitative criteria for viable neoplasm ? Osseous skeletal structures ? 5.0 max Fulfills quantitative criteria for viable neoplasm ? TECHNIQUE: Following the intravenous administration of 14.5 mCi of F-18 deoxyglucose via the right antecubital fossa, multiplanar image acquisitions of the head, neck, chest, abdomen and pelvis to the level of the midthigh, obtained at one-hour post radiopharmaceutical administration contemporaneously interpreted with the current CT of the chest, abdomen and pelvis dated 12/03/[address] of the chest dated 11/05/2023 via coregistration reveal: ? SERUM GLUCOSE LEVEL:? 103 mg/dL? HEIGHT:?? 73 inches WEIGHT:?? 205 pounds ? FINDINGS: ? HEAD/NECK:? There is no evidence of abnormal increased glucose metabolism in the pharyngeal mucosal space, parapharyngeal space, oropharynx, bilateral-lateral and anterior neck, hypopharynx and distribution of the larynx. ? The visualized portion of the cerebral cortical-subcortical structures demonstrate symmetric and preserved glucose metabolism. ? CHEST:? Facilitated uptake is noted in the right lower posterolateral and posteromedial lung zones on the right lower lobe in two separate locations. The calculated standard uptake value is 2.9. The largest of the parenchymal densities measures 25.3 mm. Increased glucose metabolism is noted in the bilateral thoracic perihilum generating a calculated standard uptake value of 6.3. The maximal axial diameter of the largest metabolic, morphologic abnormality is 7.9 cm. Enhanced tracer is visualized in the subcarinal anterior mediastinum. The calculated standard uptake value is 4.1. The maximal axial diameter of the metabolic, morphologic abnormality is 15.6 mm. ? CT of the chest demonstrates the following anatomic characteristics: Atherosclerotic calcification is defined in the thoracic aorta without evidence of dilatation, aneurysm formation. Coronary artery calcification is observed. Bilateral axillary soft tissue densities are ametabolic. Additional parenchymal densities defined in the right and left hemithorax demonstrate no evidence of quantitatively significant increased FDG uptake.?? ? ABDOMEN/PELVIS:? Increased FDG concentration is noted in the bilateral midabdominal retroperitoneum in the region of the superior mesenteric and lateral aortic lymph node basins. The calculated standard uptake value is 3.9. The maximal axial diameter of the largest metabolic, morphologic abnormality is 15.7 mm. Left and right lobe hepatic (3.2) parenchymal hypermetabolic foci? are defined with calculated standard uptake value of 4.0. The largest metabolic abnormality demonstrates a maximal axial diameter of 50.8 mm. The spleen is enlarged, measuring a maximal vertical dimension of 19.4 cm with a calculated standard uptake value of < the hepatic reference. Normal physiologic distribution of the radiopharmaceutical is identified in both renal units, urinary bladder, and visualized intestinal tract. ? CT of the abdomen and pelvis is remarkable for the following: Atherosclerotic calcification is defined in the abdominal aorta without evidence of dilatation, aneurysm formation. Pelvic arterial calcification is observed. Postinflammatory changes are defined within the pancreas.? The urinary bladder is prominent in size. ? SKELETAL:? Enhanced tracer uptake is noted in the right anterior iliac wing, the left posterior ilium, the posterior element of the first cervical vertebra, and chest wall-rib, left scapula. Facilitated uptake is multifocally apparent in the axial skeleton, generating a calculated standard uptake value of 5.0. ? PET/PET/CT Tumor Base -Thigh Init IMPRESSION: 1. ABNORMAL EXAMINATION INDICATIVE OF MALIGNANT-VIABLE NEOPLASM. 2. Accentuated fluorine labeled glucose noted in the right lower lung field, right lower lobe fulfills quantitative criteria for viable neoplasm. 3. Enhanced tracer identified in the anterior mediastinum and bilateral thoracic perihilum fulfills quantitative criteria for viable malignant transformation. 4. Facilitated FDG concentration noted in the abdominal retroperitoneum fulfills quantitative criteria for neoplastic involvement. 5. There is left and right lobe hepatic parenchymal metastatic disease. 6. Splenomegaly is defined without evidence of viable neoplastic transformation. (Venus et al., Journal of Nuclear Medicine 44:1072, 2004). 7. Skeletal hypermetabolic foci fulfill quantitative criteria for viable osseous neoplasia. Electronic Signature Dante Rosa D.O. Accurate Quantification of SUVs for this report are calculated using the exclusive [employer]. (U.S. Patent No. [phone] patent [phone]). Standardization and correction of the FDG SUV metric via [employer] technology allow for vendor non-specific objective quantitative examination comparison and optimization of the sensitivity and specificity of the FDG PET-CT examination. [email or web address] Electronically Signed: Dante Rosa DO at 14:08 EDT ,
== END | disposition home or self-care (01) ==
PROVIDERS: Referring Provider Nurse Practitioner Acute Care; Visit Provider Nurse Practitioner Acute Care
DX: R91.8 Other nonspecific abnormal finding of lung field (principal); R59.0 Localized enlarged lymph nodes
CPT/HCPCS: 78815; A9552

== ENCOUNTER → 2023-12-19 | Outpatient (CLI) | payer OTHER, SELFPAY ==
[2023-12-19] VITALS (14 sets, daily range): BP systolic 124–175; BP diastolic 47–83; PULSE 68–77; RESP 10–18; TEMP 36.3; O2SAT 88–97; BMI 27.7
--- NOTE | 2023-12-19 | LIVB_PTH ---
PATIENT: DAT WILLIAM LOC: ME U#:[id number] AGE/SX: 63/M ROOM: RE12/19/[address]: RUSS Calderon : 1960 BED: DIS: 12/19/2023 SPEC #: [id number] RECD: 12/19/23 10:25 STATUS: KAY LOPEZ #: [id number] JOHN: 12/19/23 00:[address]: Janay Chaidez NP DEPT: SURGICAL PATHOLOGY RECD BY: Arnold Nuñez ENTERED: 12/19/23 10:25 SP TYPE: LIVER BX OTHR DR: DO Mylene Cohen NP-C Tissues: Liver, NOS Procedures: PAS with Diastase (control) Trichrome (control) Special Stain Group I PAS Stain (control) Surgery Specimen Level V Retic (control) Iron Stain (control) HEADER OPERATION: CT guided liver biopsy PRE-OP DIAGNOSIS: Abnormal PET - hepatomegaly TISSUE SUBMITTED: 18 gauge x 4 cores MICROSCOPIC DIAGNOSIS Liver, CT guided core biopsy: Liver parenchymal tissue, negative for malignancy. Chronic hepatitis, Grade2, Stage 3. See microscopic description and comment. 12/20/2023 COMMENT The specimen is evaluated at the time of biopsy by Dr. Brizuela. Immediate Evaluation = Negative for malignant cells. MICROSCOPIC DESCRIPTION Slides are reviewed. This specimen shows liver parenchymal tissue, negative for malignancy. Mild distortion of normal lobular architecture is noted. Hepatocytes show focal mild macro and microvesicular steatosis and reactive changes. Glycogenation of nuclei are also noted. Focal dilatation sinusoid is also noted. Portal areas show mild to moderate chronic inflammatory cells infiltrate consisting of predominantly lymphocytes. Mild cholangitis is also noted. Significant interface inflammation is not seen. Iron stains show absent iron. Reticulin and trichome stain highlights increased portal, periportal and focal bridging fibrosis. PAS stain with and without diastase do not show any abnormal accumulation of protein. All stains are performed with appropriate matched controls. Correlation with clinical, radiologic, laboratory findings and appropriate follow up are necessary. Case has been reviewed in consultation with Dr. Mckenna who concurs with the above diagnosis. IDC:SERA GROSS DESCRIPTION Received in fixative is one container labeled with the patient's name and designated Liver CT guided core biopsy. The specimen consists of multiple elongated fragments of page soft tissue that in aggregate measure 1.8 x 0.3 x 0.1 cm. The specimen is totally submitted in one cassette. Two touch imprints are prepared at the time of core biopsy. 12/19/2023 TC:3 CPT:48958,30653,95271m4
[2023-12-19 08:59] LABS: Platelet Count 125 K/mm3 (150-450)
[2023-12-19 09:06] LABS: International Normalized Ratio 1.1; Prothrombin Time (Protime)PT. 14.1 SECONDS (11.7-14.9)
[2023-12-19 09:07] LABS: Partial Thromboplast Time 28.8 Seconds (24.1-36.2)
[2023-12-19] MEDS: 0.9% Saline Lock 10 ML Syringe IV (09:44)
[2023-12-19] MEDS: Midazolam 2 MG/2 ML Syringe IV (09:45)
[2023-12-19] MEDS: fentaNYL 100 MCG/2 ML Ampul IV (09:48)
[2023-12-19] MEDS: Lidocaine 2% (20 ml mdv) 20 ML Vial INFILT (10:04)
--- NOTE | 2023-12-19 11:03 | PCM.OP.PRO ---
Procedure Report Date of Procedure: 12/19/23 Assessment & Plan Assessment/Plan (1) Liver mass: PLAN: PROCEDURE: CT DIRECTED CORE LIVER BIOPSY ORDERING PROVIDER: Janay Chaidez CNP INDICATION: Male, 63 years old. Liver mass. PROVIDER: ERINN Giron CONSENT: Written informed consent was obtained having explained the risks, benefits and alternatives in detail with the patient who accepted the risks and agreed to proceed. Laboratory review and clinical assessment was performed. PRE-PROCEDURE SEDATION ASSESSMENT: Current history and physical dictated by referring provider and reviewed. No clinical changes since date of exam. Patient has a Mallampati Score of Class 2 and ASA Class of 2. PROCEDURAL SEDATION PROTOCOL: The Drugs used were: 2 mg Versed, IV, and 50 mcg Fentanyl, IV. The sedation time was: 30 minutes, starting at 9:45 AM and terminated at 1015. The procedural sedation protocol was independently monitored by the department nurse. RADIATION DOSAGE (If Supplied By Facility): CTDIvol = 19.75 mGy, DLP = 858.29 mGycm Individualized dose optimization techniques were used for this CT. TECHNIQUE The patient was placed in a supine position. Using CT image guidance with image documentation, the liver mass was identified. The skin surface was prepped with chlorhexidine and draped in a sterile fashion. 2% lidocaine was used for local anesthesia. Using a lateral approach, puncture of the liver was uneventful with an 18-gauge core needle system. Four, 18-gauge core samples were obtained, and submitted in formalin to the pathologist for further assessment. Pathology was also present in the CT suite for sample review. The needle was removed. An occlusive sterile dressing was applied. Patient tolerated the procedure well, and returned to the holding bay for nursing monitoring. IMPRESSION: CT directed core needle biopsy of the liver mass, using CT image guidance with image documentation as described. Procedural Sedation protocol utilized with independent monitoring. Procedures Radiology Radiology CT Procedures: 36785 Biopsy Liver Multi Select Codes Radiology Radiology CT Procedures: 72536-83 CT guidance parenchymal tissue
== END | disposition home or self-care (01) ==
PROVIDERS: Nurse Practitioner Acute Care; Referring Provider Nurse Practitioner Acute Care; Visit Provider Nurse Practitioner Acute Care
DX: Z01.818 Encounter for other preprocedural examination (principal); R16.0 Hepatomegaly, not elsewhere classified; R59.0 Localized enlarged lymph nodes
CPT/HCPCS: 47000; 36415; 77012; 85049; 85610; 85730; 88307; 88312; 99156; 99157; A4216